=== PATIENT | male | born 1995 | race Caucasian/White ===

== ENCOUNTER 2024-09-26 16:45 | Emergency (ER) | payer OTHER ==
[~2024-09-26] VITALS: Ht 175.3 cm; Wt 88.5 kg
[2024-09-26 17:15] VITALS: BP 148/85; TEMP 98.3; O2SAT 99
[2024-09-26 18:32] LABS: BASOPHILS % (AUTO) 0.5 % (0.0-2.0); EOSINOPHILS # (AUTO) 0.1 K/uL (0.0-0.7); EOSINOPHILS % (AUTO) 1.4 % (0.0-6.0); HEMATOCRIT 44 % (39-51); HEMOGLOBIN 15.9 g/dL (13.5-17.5); LYMPHOCYTES # (AUTO) 1.3 K/uL (0.8-4.8); LYMPHOCYTES % (AUTO) 24.3 % (20.0-44.0); MEAN CORPUSCULAR HEMOGLOBIN 32 PG (26.0-33.0); MEAN CORPUSCULAR HGB CONC 37 g/dl (31.0-36.0); MEAN CORPUSCULAR VOLUME 87 fL (80-96); MONOCYTES # (AUTO) 0.3 K/uL (0.1-1.30); MONOCYTES % (AUTO) 5.6 % (2.0-12.0); NEUTROPHILS # (AUTO) 3.7 K/uL (1.8-8.9); NEUTROPHILS % (AUTO) 68.2 % (43.0-81.0); PLATELET COUNT (AUTO) 289 K/uL (150-450); RED BLOOD CELL COUNT(AUTO) 5.02 MIL/uL (4.5-6.0); RED CELL DISTRIBUTION WIDTH 12.5 % (11.5-15.0); WHITE BLOOD COUNT (AUTO) 5.4 K/uL (4.3-11.0)
[2024-09-26 18:47] LABS: CALCIUM, SERUM 9.3 mg/dL (8.5-10.1); CARBON DIOXIDE 27 mmol/L (21-32); CHLORIDE 103 mmol/L (98-107); CREATININE 0.9 mg/dL (0.6-1.3); GLUCOSE 100 mg/dL (74-106); POTASSIUM 4.2 mmol/L (3.5-5.1); SODIUM SERUM 137 mmol/L (136-145); UREA NITROGEN, BLOOD 12 mg/dL (7-18)
[2024-09-26 19:00] LABS: ALANINE AMINOTRANSFERASE 124 U/L (12-78); ALBUMIN 4.4 g/dL (3.4-5.0); ALKALINE PHOSPHATASE 68 U/L (46-116); ASPARTATE AMINOTRANSFERASE 97 U/L (15-37); BILIRUBIN,DIRECT 0.1 mg/dL (0.0-0.2); BILIRUBIN,TOTAL 0.5 mg/dL (0.2-1.0); NT-PRO BNP 14 pg/mL (0-125); TOTAL PROTEIN, SERUM 7.8 g/dL (6.4-8.2)
== END 2024-09-26 20:01 | disposition home or self-care (01) ==
LOC: ER 16:52
DX: R07.9 Chest pain, unspecified (principal); R06.02 Shortness of breath; I10 Essential (primary) hypertension
CPT/HCPCS: 99285; 71045; 93005; 85025; 80048; 80076; 36415; 84484; 83880; A4223